=== PATIENT | male | born 1995 | race Caucasian/White ===

== ENCOUNTER 2024-02-28 07:56 | Day surgery (SDC) | payer OTHER ==
[~2024-02-28] VITALS: Ht 170.2 cm; Wt 69.8 kg
[~2024-02-28 07:56] MED LIST: LR 1,000 ML IV SCH
[2024-02-28 08:59] VITALS: BP 120/70; PULSE 60; TEMP 98.4
[2024-02-28] MEDS ORDERED: Lidocaine PF 2% (20 MG/ML) 5 ML VIAL ONE (09:35)
[2024-02-28] MEDS ORDERED: fentaNYL 50 MCG/ML 2 ML VIAL ONE ×2 (09:35→10:46)
[2024-02-28] MEDS ORDERED: MOTRIN 600600 MG/TAB PO (09:53)
[2024-02-28] MEDS ORDERED: NORCO 325 MG-51 TAB PO (09:53)
[2024-02-28] MEDS ORDERED: HYDROmorphone 1 MG/1 ML SYRINGE [PACU/SDC ONLY] IV PRN (10:45)
[2024-02-28] MEDS ORDERED: BUPivacaine PF 0.5% w EPI (1:200,000) 10 ML VIAL IJ ONE (10:45)
[2024-02-28] MEDS ORDERED: Meperidine 50 MG/ML 1 ML VIAL IV PRN (10:45)
[2024-02-28] MEDS ORDERED: fentaNYL 50 MCG/ML 1 ML SYRINGE/VIAL [PACU/SDC ONLY] IV PRN (10:45)
[2024-02-28] MEDS ORDERED: Ondansetron 4 MG/2 ML VIAL IV PRN ×2 (10:45→11:30)
[2024-02-28] MEDS ORDERED: Lidocaine PF 2% (20 MG/ML) 10 ML POLY AMP IJ ONE ×2 (10:45)
[2024-02-28] MEDS ORDERED: dexAMETHasone 10 MG/ML VIAL ONE (10:46)
[2024-02-28] MEDS ORDERED: Ondansetron 4 MG/2 ML VIAL ONE (10:46)
[2024-02-28] MEDS ORDERED: Ketorolac 30 MG/ML VIAL ONE (10:56)
[2024-02-28] MEDS ORDERED: Ibuprofen 600 MG TAB PO PRN (11:30)
[2024-02-28 11:35] VITALS: BP 109/68; PULSE 74; TEMP 97.2
[2024-02-28 11:58] VITALS: TEMP 97
[2024-02-28 12:00] VITALS: BP 111/70; PULSE 71
--- NOTE | 2024-02-28 17:08 | NUR ---
1135- PT RETURNS FROM PROCEDURE VIA CART TO [facility]. MONITORS ON AND ALARMS SET. CALL LIGHT WITHIN REACH. REPORT RECEIVED FROM ANGELO STERLING. PT ALERT AND ORIENTED. PT REQUESTS FOOD AND DRINK. PT DENIES ANY PAIN OR NAUSEA. 1200- PT TAKING FOOD AND DRINK WELL. NO COMPLICATIONS NOTED. 1225- DISCHARGE INSTRUCTIONS GIVEN TO PT. ALL QUESTIONS ANSWERED. 1305- PT TRANSFERRED OUT OF THE HOSPITAL VIA WHEELCHAIR AND ASSIST TO PRIVATE VEHICLE DRIVEN BY GIRLFRIEND.
== END 2024-02-28 13:05 | disposition home or self-care (01) ==
LOC: SDCO 07:56
DX: K64.8 Other hemorrhoids (principal)
CPT/HCPCS: J0690; J1100; J1885; J2405; J2704; J3010; J7120